=== PATIENT | male | born 1975 | race American Indian/Alaskan Native ===

== ENCOUNTER 2017-10-11 16:01 | Emergency (ER) | payer OTHER ==
[2017-10-11 16:19] VITALS: BP 165/114
[2017-10-11 17:17] LABS: Basophils % (Auto) 0.1 % (0.0-1.8); Eosinophils # (Auto) 0.2 K/mm3 (0.0-0.4); Eosinophils % (Auto) 2.7 % (0.0-4.3); Hemoglobin 16.2 gm/dl (11.8-15.2); Lymphocytes # (Auto) 1.5 K/mm3 (1.2-5.4); Lymphocytes % (Auto) 23.1 % (13.4-35.0); Mean Corpuscular HGB Conc 33 % (32-34); Mean Corpuscular Hemoglobin 31 pg (28-32); Mean Corpuscular Volume 92 fl (84-94); Monocytes # (Auto) 0.8 K/mm3 (0.0-0.8); Monocytes % (Auto) 11.8 % (0.0-7.3); Platelet Count 182 K/mm3 (140-440); Red Blood Count 5.32 M/mm3 (3.65-5.03); Red Cell Distribution Width 14.8 % (13.2-15.2)
--- NOTE | 2017-10-11 17:22 | XRay Report ---
FINAL REPORT EXAM: XR CHEST ROUTINE 2V HISTORY: Shortness of breath TECHNIQUE: Two views of the chest were performed Comparison: None FINDINGS: Heart size is normal. There are patchy increased right perihilar and slightly infrahilar markings suggestive of mild right middle lobe infiltrate. There are no effusions. There is mild bronchial thickening bilaterally. IMPRESSION: Mild right middle lobe infiltrate and mild bilateral bronchitis.
[2017-10-11 17:30] LABS: BUN/Creatinine Ratio 12; Blood Urea Nitrogen 14 mg/dL (9-20); Calcium 9.1 mg/dL (8.4-10.2); Hemolysis Index 18
[2017-10-11] MEDS ORDERED: NORCO 7.5/325 PO ONE (18:08)
[2017-10-11] MEDS ORDERED: MOTRIN PO ONE (18:08)
--- NOTE | 2017-10-11 18:15 | Emergency Department Report ---
Blank Doc - Documentation Documentation: Patient is a 42-year-old [place]ian male who is presenting with left-sided chest pain for the last 2 days. Patient's had a cough congestion for approximately 2 weeks with pain just developed 2 days ago. Patient states it is pleuritic and hurts to take a deep breath and also hurts cough. Patient states pain is approximately 8 out of 10 in severity. Patient denies any fever or significant shortness of breath at this time. Patient's laboratory studies are relatively within normal limits and h x-ray shows a left-sided infiltrate. Because of how painful the patient is and how much difficulty has when he takes a deep breath CTA of the chest to rule out PE was performed as well as to gain more insight on how large the pneumonia is listed as a mass associated.
--- NOTE | 2017-10-11 19:49 | Cat Scan Report ---
FINAL REPORT EXAM: CT ANGIO CHEST HISTORY: LEFT SIDED INFILTRATE PAIN WITH INSPIR RO PE TECHNIQUE: CT chest CT angiogram with intravenous contrast. Multiplanar and maximum intensity reconstructions obtained PRIORS: None. FINDINGS: There is no evidence of filling defect within the central pulmonary vasculature to suggest the presence of acute pulmonary embolus. There is enlarged pretracheal lymph node measuring 2.0 x 1.24 centimeters. There is bilateral hilar lymphatic prominence. Heart and great vessels are unremarkable. The aorta is normal in caliber. Within the right upper lobe and right lower lobe there are nodular pulmonary opacities largely falling along bronchovascular bundles along with mild bronchial wall thickening. No pleural fluid collection seen. Visualized portion of the upper abdomen demonstrates no acute change. IMPRESSION: Bilateral hilar adenopathy with enlarged pretracheal lymph node Right-sided pulmonary nodular opacities with a "tree-in-bud" appearance. Differential considerations are broad and include infectious etiologies including fungal or mycobacterial infection, sarcoidosis or bronchiolitis
[2017-10-11] MEDS ORDERED: LEVAQUIN PO ONE (20:02)
--- NOTE | 2017-10-11 20:09 | Emergency Department Report ---
ED Chest Pain HPI - General Chief Complaint: Chest Pain Stated Complaint: CHEST PAIN Time Seen by Provider: 10/11/17 17:54 Source: patient Mode of arrival: Ambulatory Limitations: No Limitations - History of Present Illness Initial Comments: 5-year-old male past medical history presents with complaint of 2 weeks of cough 2 days of pleuritic chest discomfort. Patient is awake alert and oriented 3. Patient initially evaluated by Dr. Tran. Fully lucid no audible wheezing or stridor on interview. Patient states he still has persistent cough slightly productive in nature. Denies any palpitations with substernal chest pain. Subjective fever. Denies any nausea or vomiting. MD Complaint: chest pain Onset/Timin -: days(s) Onset: during rest Pain Location: left chest Severity: moderate Severity scale (0 -10): 6 Quality: other (pleuritic) Consistency: intermittent Improves With: nothing Worsens With: other (coughing) Other Symptoms: cough, fever Aspirin use within the Past 7 Days: (0) No - Related Data On Oral Contraceptives: No Previous Rx's Medication Instructions Recorded Last Taken Type ALBUTEROL Inhaler [ProAir HFA 2 puff IH QID PRN #1 inhalation 10/11/17 Unknown Rx Inhaler] Ibuprofen [Motrin] 800 mg PO Q8HR PRN #20 tablet 10/11/17 Unknown Rx Levofloxacin [Levaquin] 750 mg PO QDAY #5 tablet 10/11/17 Unknown Rx Phenylephrine/Dm/Acetaminop/GG 10 ml PO Q6H PRN #1 liquid 10/11/17 Unknown Rx [Mucinex Hdfx-Xdg-Vxivsftkjv Lq] Allergies Allergy/AdvReac Type Severity Reaction Status Date / Time No Known Allergies Allergy Unverified 10/11/17 16:14 Heart Score - HEART Score History: Slightly suspicious EKG: Normal Age: < 45 Risk factors: 1-2 risk factors Troponin: < normal limit HEART Score: 1 ED Review of Systems ROS: Stated complaint: CHEST PAIN Other details as noted in HPI Constitutional: denies: chills, fever Eyes: denies: eye pain, eye discharge, vision change ENT: denies: ear pain, throat pain Respiratory: cough, shortness of breath. denies: wheezing Cardiovascular: denies: chest pain, palpitations Endocrine: no symptoms reported Gastrointestinal: denies: abdominal pain, nausea, diarrhea Genitourinary: denies: urgency, dysuria Musculoskeletal: denies: back pain, joint swelling, arthralgia Skin: denies: rash, lesions Neurological: denies: headache, weakness, paresthesias Psychiatric: denies: anxiety, depression Hematological/Lymphatic: denies: easy bleeding, easy bruising ED Past Medical Hx - Past Medical History Previous Medical History?: Yes Additional medical history: Bronchitis - Surgical History Past Surgical History?: No - Social History Smoking Status: Never Smoker Substance Use Type: Alcohol, Non Opiate Pain, Other - Medications Home Medications: Home Medications Medication Instructions Recorded Confirmed Last Taken Type ALBUTEROL Inhaler [ProAir HFA 2 puff IH QID PRN #1 inhalation 10/11/17 Unknown Rx Inhaler] Ibuprofen [Motrin] 800 mg PO Q8HR PRN #20 tablet 10/11/17 Unknown Rx Levofloxacin [Levaquin] 750 mg PO QDAY #5 tablet 10/11/17 Unknown Rx Phenylephrine/Dm/Acetaminop/GG 10 ml PO Q6H PRN #1 liquid 10/11/17 Unknown Rx [Mucinex Dvda-Fbi-Nqlrwgoaqc Lq] ED Physical Exam - General Limitations: No Limitations General appearance: alert, in no apparent distress - Head Head exam: Present: atraumatic, normocephalic - Eye Eye exam: Present: normal appearance, PERRL, EOMI - ENT ENT exam: Present: mucous membranes moist - Neck Neck exam: Present: normal inspection - Respiratory Respiratory exam: Present: rhonchi (slight rhonchi right lung field). Absent: respiratory distress - Cardiovascular Cardiovascular Exam: Present: regular rate, normal rhythm. Absent: systolic murmur, diastolic murmur, rubs, gallop - GI/Abdominal GI/Abdominal exam: Present: soft, normal bowel sounds - Rectal Rectal exam: Present: deferred - Extremities Exam Extremities exam: Present: normal inspection - Back Exam Back exam: Present: normal inspection - Neurological Exam Neurological exam: Present: alert, oriented X3 - Psychiatric Psychiatric exam: Present: normal affect, normal mood - Skin Skin exam: Present: warm, dry, intact, normal color. Absent: rash ED Course Vital Signs 10/11/17 10/11/17 10/11/17 16:14 18:25 18:29 Temperature 98.5 F Pulse Rate 77 Respiratory 18 18 18 Rate Blood Pressure 165/114 O2 Sat by Pulse 98 Oximetry JULIEN score - Julien Score Age > 65: (0) No Aspirin use within the Past 7 Days: (0) No 3 or more CAD Risk Factors: (0) No 2 or more Angina events in past 24 hrs: (0) No Known CAD with more than 50% Stenosis: (0) No Elevated Cardiac Markers: (0) No ST Deviation Greater than 0.5mm: (0) No JULIEN Score: 0 ED Medical Decision Making - Lab Data Result diagrams: 10/11/17 16:55 10/11/17 16:55 - Medical Decision Making A/P: Right-sided pneumonia 1-case discussed with Dr. Tran and CT of chest reviewed. N Chiodo study obtained to rule out PE. As per CT there is some upper and lower right sided anomaly consistent with pulmonary opacities. Differentials include as per CT read fungal versus mycobacterial infection sarcoidosis or bronchiolitis 2-Dr. Tran and I both spoke to the patient and informed him of his CT finding. We offered to treat him for pneumonia and admit him to the hospital for further management. Patient declined at this time states that he has personal issues he must take care of before being admitted or further evaluated at this time. Blood cultures sent before discharge. Patient empirically covered with a dose of Levaquin + fluconazole as per Dr. Tran. Patient stated that he would come back as soon as possible and more than likely would return to the hospital tomorrow for further evaluation and management. We warned the patient that he is at risk for sepsis and . Patient stated he understood these risks and would come back as soon as possible. This conversation was witnessed by roll operator at bedside. 3-Motrin when necessary, albuterol inhaler, Mucinex prn Critical care attestation.: If time is entered above; I have spent that time in minutes in the direct care of this critically ill patient, excluding procedure time. ED Disposition Clinical Impression: Left against medical advice Pneumonia Qualifiers: Pneumonia type: due to unspecified organism Laterality: right Lung location: upper lobe of lung Qualified Code(s): J18.1 - Lobar pneumonia, unspecified organism Disposition: LEFT AGAINST MED ADVICE Is pt being admited?: No Does the pt Need Aspirin: No Condition: Stable Instructions: Bacterial Pneumonia (ED), Community-acquired Pneumonia (ED) Additional Instructions: Patient advised to return to the ED for reevaluation and further management as soon as possible Prescriptions: ALBUTEROL Inhaler [ProAir HFA Inhaler] 2 puff IH QID PRN #1 inhalation PRN Reason: Cough Ibuprofen [Motrin] 800 mg PO Q8HR PRN #20 tablet PRN Reason: Fever Levofloxacin [Levaquin] 750 mg PO QDAY #5 tablet Phenylephrine/Dm/Acetaminop/GG [Mucinex Qqky-Atm-Wbspudfijd Lq] 10 ml PO Q6H PRN #1 liquid PRN Reason: Cough Referrals: [facility] [Provider Group] - 3-5 Days Forms: AMA Form Time of Disposition: 20:10
[2017-10-11] MEDS ORDERED: DIFLUCAN PO ONE (21:04)
== END 2017-10-11 20:30 | disposition left against medical advice (07) ==
LOC: ED 16:01
DX: J18.1 Lobar pneumonia, unspecified organism (principal)
CPT/HCPCS: 36415; 71046; 71275; 80048; 84484; 85025; 87040; 93005; 93010; 99284; Q9967

== ENCOUNTER 2017-10-12 19:34 | Emergency (ER) | payer SELFPAY ==
[2017-10-12 20:39] LABS: Basophils % (Auto) 0.3 % (0.0-1.8); Eosinophils # (Auto) 0.1 K/mm3 (0.0-0.4); Eosinophils % (Auto) 1.6 % (0.0-4.3); Hematocrit 50.6 % (35.5-45.6); Lymphocytes # (Auto) 1.5 K/mm3 (1.2-5.4); Lymphocytes % (Auto) 21.2 % (13.4-35.0); Mean Corpuscular HGB Conc 34 % (32-34); Mean Corpuscular Hemoglobin 31 pg (28-32); Mean Corpuscular Volume 91 fl (84-94); Monocytes # (Auto) 0.7 K/mm3 (0.0-0.8); Monocytes % (Auto) 9.4 % (0.0-7.3); Platelet Count 172 K/mm3 (140-440); Red Blood Count 5.57 M/mm3 (3.65-5.03); Red Cell Distribution Width 14.5 % (13.2-15.2)
[2017-10-12 20:48] LABS: BUN/Creatinine Ratio 13; Blood Urea Nitrogen 13 mg/dL (9-20); Calcium 9.1 mg/dL (8.4-10.2); Hemolysis Index 14
[2017-10-13] MEDS ORDERED: TORADOL IM ONE (03:35)
--- NOTE | 2017-10-13 03:43 | Emergency Department Report ---
ED General Adult HPI - General Chief complaint: Chest Pain Stated complaint: CP Time Seen by Provider: 10/13/17 03:23 Source: patient Mode of arrival: Ambulatory Limitations: No Limitations - History of Present Illness Initial comments: Patient is 42 years old male with no significant past medical history. Patient was seen here yesterday for a 2 week history of left-sided chest pain cough. Patient had a CTA done and it shows some possible pulmonary opacities questioning pneumonia or other kind of infection. Patient did not stay yesterday and he came back again. Patient stated that he did not have any fever recently no weight loss, no loss of appetite. No recent travel. No family history of sarcoidosis. Patient denied night sweats or fever. Severity scale (0 -10): 6 - Related Data Previous Rx's Medication Instructions Recorded Last Taken Type ALBUTEROL Inhaler [ProAir HFA 2 puff IH QID PRN #1 inhalation 10/11/17 Unknown Rx Inhaler] Ibuprofen [Motrin] 800 mg PO Q8HR PRN #20 tablet 10/11/17 Unknown Rx Levofloxacin [Levaquin] 750 mg PO QDAY #5 tablet 10/11/17 Unknown Rx Phenylephrine/Dm/Acetaminop/GG 10 ml PO Q6H PRN #1 liquid 10/11/17 Unknown Rx [Mucinex Iupx-Buw-Kueujvlcdk Lq] Allergies Allergy/AdvReac Type Severity Reaction Status Date / Time No Known Allergies Allergy Unverified 10/11/17 16:14 ED Review of Systems ROS: Stated complaint: CP Other details as noted in HPI Comment: All other systems reviewed and negative Constitutional: denies: chills, fever Respiratory: cough. denies: orthopnea, shortness of breath, SOB with exertion Cardiovascular: denies: chest pain, palpitations, dyspnea on exertion, edema Gastrointestinal: denies: abdominal pain, nausea, vomiting, diarrhea, constipation, hematemesis Genitourinary: denies: urgency, dysuria Neurological: denies: headache, weakness, numbness, paresthesias ED Past Medical Hx - Past Medical History Additional medical history: Bronchitis - Social History Smoking Status: Never Smoker Substance Use Type: None - Medications Home Medications: Home Medications Medication Instructions Recorded Confirmed Last Taken Type ALBUTEROL Inhaler [ProAir HFA 2 puff IH QID PRN #1 inhalation 10/11/17 Unknown Rx Inhaler] Ibuprofen [Motrin] 800 mg PO Q8HR PRN #20 tablet 10/11/17 Unknown Rx Levofloxacin [Levaquin] 750 mg PO QDAY #5 tablet 10/11/17 Unknown Rx Phenylephrine/Dm/Acetaminop/GG 10 ml PO Q6H PRN #1 liquid 10/11/17 Unknown Rx [Mucinex Pidn-Sol-Ljqpktwhqq Lq] ED Physical Exam - General Limitations: No Limitations General appearance: alert, in no apparent distress - Head Head exam: Present: atraumatic, normocephalic - Eye Eye exam: Present: normal appearance, PERRL - ENT ENT exam: Present: normal exam, normal orophraynx, mucous membranes moist - Neck Neck exam: Present: normal inspection, full ROM. Absent: tenderness, meningismus - Respiratory Respiratory exam: Present: normal lung sounds bilaterally. Absent: respiratory distress, wheezes, rales, rhonchi, stridor, chest wall tenderness, accessory muscle use, decreased breath sounds, prolonged expiratory - Cardiovascular Cardiovascular Exam: Present: regular rate, normal rhythm, normal heart sounds - GI/Abdominal GI/Abdominal exam: Present: soft. Absent: distended, tenderness, guarding - Extremities Exam Extremities exam: Present: normal inspection, full ROM, normal capillary refill - Back Exam Back exam: Present: normal inspection, full ROM. Absent: tenderness, CVA tenderness (R), CVA tenderness (L), muscle spasm, paraspinal tenderness - Neurological Exam Neurological exam: Present: alert, oriented X3, CN II-XII intact, normal gait - Skin Skin exam: Present: warm, intact, normal color. Absent: cyanosis, diaphoretic ED Course Vital Signs 10/12/17 19:35 Temperature 98.1 F Pulse Rate 77 Respiratory 16 Rate Blood Pressure 178/108 O2 Sat by Pulse 98 Oximetry - Reevaluation(s) Reevaluation #1: 10/13/17 03:46 Patient looks very well in no acute distress. No clinical evidence of TB or malignancy. Patient vital signs stable with an oxygen saturation of 100% on room air. I advised patient to follow up with a pulmonology for further workup. I don't feel this patient needed to be admitted at this time since he is completely asymptomatic except for the cough. Labs reviewed from today and yesterday which showed no acute abnormality. I advised patient to continue his current antibiotic. 10/13/17 03:48 ED Medical Decision Making - Lab Data Result diagrams: 10/12/17 20:18 10/12/17 20:18 Critical care attestation.: If time is entered above; I have spent that time in minutes in the direct care of this critically ill patient, excluding procedure time. ED Disposition Clinical Impression: Pneumonia Disposition: DC-01 TO HOME OR SELFCARE Is pt being admited?: No Condition: Stable Instructions: Bacterial Pneumonia (ED) Referrals: CARMEN BOTELLO MD [Primary Care Provider] - 3-5 Days
[2017-10-13] MEDS ORDERED: LEVAQUIN ONE (03:47)
[2017-10-13] MEDS ORDERED: LEVAQUIN PO ONE (03:55)
[2017-10-13 03:57] VITALS: BP 168/125
== END 2017-10-13 04:03 | disposition home or self-care (01) ==
LOC: ED 19:34
DX: J18.9 Pneumonia, unspecified organism (principal)
CPT/HCPCS: 36415; 80048; 85025; 93005; 93010; 96372; 99283; J1885

== ENCOUNTER 2018-11-02 05:43 | Emergency (ER) | payer OTHER ==
[2018-11-02] MEDS ORDERED: NACL 0.9% 1000 ML 1,000 ML IV ONE (05:49)
[2018-11-02 06:47] LABS: Basophils % (Auto) 0.3 % (0.0-1.8); Eosinophils # (Auto) 0.1 K/mm3 (0.0-0.4); Eosinophils % (Auto) 1.7 % (0.0-4.3); Hematocrit 50.5 % (35.5-45.6); Hemoglobin 16.9 gm/dl (11.8-15.2); Lymphocytes # (Auto) 1.8 K/mm3 (1.2-5.4); Lymphocytes % (Auto) 30.9 % (13.4-35.0); Mean Corpuscular HGB Conc 33 % (32-34); Mean Corpuscular Volume 93 fl (84-94); Monocytes # (Auto) 0.5 K/mm3 (0.0-0.8); Monocytes % (Auto) 8.9 % (0.0-7.3); Platelet Count 184 K/mm3 (140-440); Red Blood Count 5.45 M/mm3 (3.65-5.03); Red Cell Distribution Width 14.7 % (13.2-15.2)
[2018-11-02 07:07] LABS: Alanine Aminotransferase 12 units/L (7-56); Albumin 4.2 g/dL (3.9-5); BUN/Creatinine Ratio 11; Blood Urea Nitrogen 12 mg/dL (9-20); Calcium 9.2 mg/dL (8.4-10.2); Hemolysis Index 15
[2018-11-02 07:32] LABS: Bilirubin,Urine NEG (Negative); Blood,Urine NEG (Negative); Color,Urine Yellow (Yellow); Mucus,Urine 3+ /HPF; Protein,Urine <15 mg/dL mg/dL (Negative); Urobilinogen,Urine < 2.0 mg/dL (<2.0)
[2018-11-02] MEDS ORDERED: ZOFRAN IV ONE (09:30)
[2018-11-02] MEDS ORDERED: TORADOL IV ONE (09:30)
[2018-11-02] MEDS ORDERED: MORPHINE IV ONE (09:30)
[2018-11-02] MEDS ORDERED: PEPCID IV ONE (09:31)
--- NOTE | 2018-11-02 11:01 | Cat Scan Report ---
PROCEDURE: CT ABDOMEN PELVIS W CON TECHNIQUE: CT of the abdomen and pelvis was performed. IV contrast was administered. No oral contrast was administered. Axial images and coronal and sagittal reformatted images were obtained. HISTORY: abdominal pain COMPARISON: None FINDINGS: The visualized liver, spleen, pancreas, adrenal glands and kidneys demonstrate no significant abnorma lity. There is no abdominal aortic aneurysm. There is no evidence for intestinal obstruction. The appendix is normal. There is no abnormal fluid collection seen. There is no free intraperitoneal air. Bladder is unremarkable. There is no abnormal pelvic fluid collection or mass seen. IMPRESSION: There is no acute abnormality identified. This document is electronically signed by Mariah Mathias MD., November 02 2018 10:59:29 AM ET
--- NOTE | 2018-11-02 11:46 | Emergency Department Report ---
ED Abdominal Pain HPI - General Chief Complaint: Abdominal Pain Stated Complaint: STOMACH PAIN Time Seen by Provider: 11/02/18 09:22 Source: patient Mode of arrival: Ambulatory Limitations: No Limitations - History of Present Illness Initial Comments: Mr. Morales is a 43-year-old male with history of hypertension presents with 3-4 days of generalized abdominal pain nausea vomiting diarrhea. Sick contact at home with similar symptoms. Denies fever. Mild to moderate cramping pain. MD Complaint: abdominal pain -: Gradual Location: periumbilical Severity: mild Severity scale (0 -10): 5 Quality: cramping Consistency: constant Improves With: nothing Worsens With: nothing - Related Data Previous Rx's Medication Instructions Recorded Last Taken Type ALBUTEROL Inhaler (OR & NICU) 2 puff IH QID PRN #1 inhalation 10/11/17 Unknown Rx [ProAir HFA Inhaler] Ibuprofen [Motrin] 800 mg PO Q8HR PRN #20 tablet 10/11/17 Unknown Rx Phenylephrine/Dm/Acetaminop/GG 10 ml PO Q6H PRN #1 liquid 10/11/17 Unknown Rx [Mucinex Fuhf-Ycy-Iqporqynfc Lq] levoFLOXacin [Levaquin] 750 mg PO QDAY #5 tablet 10/11/17 Unknown Rx Famotidine [Acid Controller] 20 mg PO BID 30 Days #60 tablet 11/02/18 Unknown Rx Promethazine [Phenergan TAB] 25 mg PO Q6HR PRN #10 tab 11/02/18 Unknown Rx amLODIPine [Norvasc] 5 mg PO DAILY 30 Days #30 tab 11/02/18 Unknown Rx hydroCHLOROthiazide [HCTZ] 25 mg PO QDAY #30 tablet 11/02/18 Unknown Rx Allergies Allergy/AdvReac Type Severity Reaction Status Date / Time No Known Allergies Allergy Unverified 10/11/17 16:14 ED Review of Systems ROS: Stated complaint: STOMACH PAIN Other details as noted in HPI Comment: All other systems reviewed and negative Constitutional: malaise. denies: fever Gastrointestinal: abdominal pain, nausea, vomiting, diarrhea ED Past Medical Hx - Past Medical History Previous Medical History?: Yes Hx Hypertension: Yes Additional medical history: Bronchitis - Surgical History Past Surgical History?: No - Social History Smoking Status: Never Smoker Substance Use Type: Alcohol - Medications Home Medications: Home Medications Medication Instructions Recorded Confirmed Last Taken Type ALBUTEROL Inhaler (OR & NICU) 2 puff IH QID PRN #1 inhalation 10/11/17 Unknown Rx [ProAir HFA Inhaler] Ibuprofen [Motrin] 800 mg PO Q8HR PRN #20 tablet 10/11/17 Unknown Rx Phenylephrine/Dm/Acetaminop/GG 10 ml PO Q6H PRN #1 liquid 10/11/17 Unknown Rx [Mucinex Mhxy-Qgx-Ncvvoxpsns Lq] levoFLOXacin [Levaquin] 750 mg PO QDAY #5 tablet 10/11/17 Unknown Rx Famotidine [Acid Controller] 20 mg PO BID 30 Days #60 tablet 11/02/18 Unknown Rx Promethazine [Phenergan TAB] 25 mg PO Q6HR PRN #10 tab 11/02/18 Unknown Rx amLODIPine [Norvasc] 5 mg PO DAILY 30 Days #30 tab 11/02/18 Unknown Rx hydroCHLOROthiazide [HCTZ] 25 mg PO QDAY #30 tablet 11/02/18 Unknown Rx ED Physical Exam - General Limitations: No Limitations General appearance: alert, in no apparent distress - Head Head exam: Present: atraumatic, normocephalic - Eye Eye exam: Present: normal appearance - ENT ENT exam: Present: mucous membranes moist - Neck Neck exam: Present: normal inspection, full ROM - Respiratory Respiratory exam: Present: normal lung sounds bilaterally. Absent: respiratory distress, wheezes, rales, rhonchi - Cardiovascular Cardiovascular Exam: Present: regular rate, normal rhythm, normal heart sounds. Absent: systolic murmur, diastolic murmur, rubs, gallop - GI/Abdominal GI/Abdominal exam: Present: soft, normal bowel sounds. Absent: distended, tenderness, guarding, rebound - Rectal Rectal exam: Present: deferred - Extremities Exam Extremities exam: Present: normal inspection - Back Exam Back exam: Present: normal inspection - Neurological Exam Neurological exam: Present: alert, oriented X3 - Psychiatric Psychiatric exam: Present: normal affect, normal mood - Skin Skin exam: Present: warm, dry, intact, normal color. Absent: rash ED Course Vital Signs 11/02/18 11/02/18 11/02/18 05:45 09:24 09:30 Temperature 98.3 F Pulse Rate 62 Respiratory 18 Rate Blood Pressure 209/135 196/126 O2 Sat by Pulse 98 100 100 Oximetry 11/02/18 11/02/18 11/02/18 09:41 09:45 10:00 Temperature Pulse Rate Respiratory 18 18 Rate Blood Pressure 196/126 200/125 O2 Sat by Pulse 98 99 Oximetry 11/02/18 11/02/18 11/02/18 10:11 10:15 10:27 Temperature Pulse Rate Respiratory 18 18 Rate Blood Pressure 200/125 O2 Sat by Pulse 99 Oximetry 11/02/18 11/02/18 11/02/18 10:30 10:45 10:56 Temperature Pulse Rate Respiratory 18 Rate Blood Pressure 200/125 O2 Sat by Pulse 99 99 96 Oximetry ED Medical Decision Making - Lab Data Result diagrams: 11/02/18 06:00 11/02/18 06:00 Laboratory Results - last 24 hr 11/02/18 11/02/18 11/02/18 06:00 06:00 07:09 WBC 5.7 RBC 5.45 H Hgb 16.9 H Hct 50.5 H MCV 93 MCH 31 MCHC 33 RDW 14.7 Plt Count 184 Lymph % (Auto) 30.9 [place] % (Auto) 8.9 H Eos % (Auto) 1.7 Baso % (Auto) 0.3 Lymph # 1.8 [place] # 0.5 Eos # 0.1 Baso # 0.0 Seg Neutrophils % 58.2 Seg Neutrophils # 3.3 Sodium 140 Potassium 3.7 Chloride 101.9 Carbon Dioxide 28 Anion Gap 14 BUN 12 Creatinine 1.1 Estimated GFR > 60 BUN/Creatinine Ratio 11 Glucose 86 Calcium 9.2 Total Bilirubin 1.00 AST 24 ALT 12 Alkaline Phosphatase 78 Total Protein 7.8 Albumin 4.2 Albumin/Globulin Ratio 1.2 Urine Color Yellow Urine Turbidity Clear Urine pH 5.0 Ur Specific [place] 1.035 H Urine Protein <15 mg/dl Urine Glucose (UA) Neg Urine Ketones Neg Urine Blood Neg Urine Nitrite Neg Urine Bilirubin Neg Urine Urobilinogen < 2.0 Ur Leukocyte Esterase Neg Urine WBC (Auto) 1.0 Urine RBC (Auto) 1.0 U Epithel Cells (Auto) < 1.0 Urine Mucus 3+ - Radiology Data Radiology results: report reviewed CT abdomen and pelvis no acute process according to radiology report - Medical Decision Making Mr. Morales presents for abdominal pain with nausea vomiting diarrhea. CBC notable for hemoconcentration and normal white count Recommended supportive care. No Evidence of acute inflammatory process of CT. Recommended clear liquid diet. Prescribed promethazine and famotidine. History of hypertension. Noncompliant with medication. Patient explains that he just desires not to take medication. I prescribed amlodipine chlorothiazide. Critical care attestation.: If time is entered above; I have spent that time in minutes in the direct care of this critically ill patient, excluding procedure time. ED Disposition Clinical Impression: Acute gastroenteritis, Abdominal pain, Hypertensive urgency Disposition: - TO HOME OR SELFCARE Is pt being admited?: No Does the pt Need Aspirin: No Condition: Stable Instructions: Hypertension (ED), Acute Abdominal Pain (ED) Prescriptions: Famotidine [Acid Controller] 20 mg PO BID 30 Days #60 tablet hydroCHLOROthiazide [HCTZ] 25 mg PO QDAY #30 tablet amLODIPine [Norvasc] 5 mg PO DAILY 30 Days #30 tab Promethazine [Phenergan TAB] 25 mg PO Q6HR PRN #10 tab PRN Reason: Nausea Referrals: LEONADRO BEGUM MD [Primary Care Provider] - 3-5 Days Forms: Work/School Release Form(ED)
[2018-11-02] MEDS ORDERED: CATAPRES PO ONE (12:04)
[2018-11-02 12:34] VITALS: BP 203/110
== END 2018-11-02 12:35 | disposition home or self-care (01) ==
LOC: ED 05:43
DX: K52.9 Noninfective gastroenteritis and colitis, unspecified (principal); I16.0 Hypertensive urgency; I10 Essential (primary) hypertension
CPT/HCPCS: 36415; 74177; 80053; 81001; 85025; 96361; 96374; 96375; 99284; J1885; J2270; J2405; J7030; Q9967

== ENCOUNTER 2019-04-07 10:44 | Emergency (ER) | payer OTHER ==
[2019-04-07] MEDS ORDERED: CATAPRES ONE (11:01)
[2019-04-07] MEDS ORDERED: CATAPRES PO ONE ×2 (11:03→13:52)
--- NOTE | 2019-04-07 11:23 | Emergency Department Report ---
ED Male HPI - General Chief complaint: Urogenital-Male Stated complaint: BLOOD IN SEMEN Time Seen by Provider: 04/07/19 11:14 Source: patient Mode of arrival: Ambulatory Limitations: No Limitations - History of Present Illness Initial comments: Patient is 43 years old male with history of hypertension, noncompliant with his medication. Patient presented to the ER complaining of blood in the semen and testicular pain for the last 3 days. Patient denied any fever or chills. Patient also denied any history of trauma. No dysuria, frequency or hematuria. MD Complaint: testicle pain, penile discharge -: days(s) (3) Radiation: none Severity: mild Severity scale (0 -10): 2 - Related Data Sexually active: Yes Previous Rx's Medication Instructions Recorded Last Taken Type ALBUTEROL Inhaler (OR & NICU) 2 puff IH QID PRN #1 inhalation 10/11/17 Unknown Rx [ProAir HFA Inhaler] Ibuprofen [Motrin] 800 mg PO Q8HR PRN #20 tablet 10/11/17 Unknown Rx Phenylephrine/Dm/Acetaminop/GG 10 ml PO Q6H PRN #1 liquid 10/11/17 Unknown Rx [Mucinex Lvad-Drg-Vptmczgshh Lq] levoFLOXacin [Levaquin] 750 mg PO QDAY #5 tablet 10/11/17 Unknown Rx Famotidine [Acid Controller] 20 mg PO BID 30 Days #60 tablet 11/02/18 Unknown Rx Promethazine [Phenergan] 25 mg PO Q6HR PRN #10 tab 11/02/18 Unknown Rx amLODIPine [Norvasc] 5 mg PO DAILY 30 Days #30 tab 11/02/18 Unknown Rx hydroCHLOROthiazide [HCTZ] 25 mg PO QDAY #30 tablet 11/02/18 Unknown Rx amLODIPine [Norvasc] 5 mg PO DAILY #30 tab 04/07/19 Unknown Rx hydroCHLOROthiazide [HCTZ] 25 mg PO QDAY #30 tablet 04/07/19 Unknown Rx Allergies Allergy/AdvReac Type Severity Reaction Status Date / Time No Known Allergies Allergy Verified 04/07/19 10:50 ED Review of Systems ROS: Stated complaint: BLOOD IN SEMEN Other details as noted in HPI Comment: All other systems reviewed and negative Constitutional: denies: chills, fever Respiratory: denies: cough, shortness of breath, SOB with exertion, SOB at rest, wheezing Cardiovascular: denies: chest pain, palpitations, dyspnea on exertion Gastrointestinal: denies: abdominal pain, nausea, diarrhea, constipation, hematemesis, melena, hematochezia Genitourinary: discharge, testicular pain. denies: urgency, dysuria, frequency, hematuria, testicular mass Musculoskeletal: denies: back pain Neurological: denies: headache, weakness, numbness, paresthesias, confusion, abn ormal gait ED Past Medical Hx - Past Medical History Hx Hypertension: Yes Additional medical history: Bronchitis - Surgical History Past Surgical History?: No - Social History Smoking Status: Current Every Day Smoker Substance Use Type: Alcohol, Marijuana - Medications Home Medications: Home Medications Medication Instructions Recorded Confirmed Last Taken Type ALBUTEROL Inhaler (OR & NICU) 2 puff IH QID PRN #1 inhalation 10/11/17 Unknown Rx [ProAir HFA Inhaler] Ibuprofen [Motrin] 800 mg PO Q8HR PRN #20 tablet 10/11/17 Unknown Rx Phenylephrine/Dm/Acetaminop/GG 10 ml PO Q6H PRN #1 liquid 10/11/17 Unknown Rx [Mucinex Lhad-Rdu-Cmbvrbfnfq Lq] levoFLOXacin [Levaquin] 750 mg PO QDAY #5 tablet 10/11/17 Unknown Rx Famotidine [Acid Controller] 20 mg PO BID 30 Days #60 tablet 11/02/18 Unknown Rx Promethazine [Phenergan] 25 mg PO Q6HR PRN #10 tab 11/02/18 Unknown Rx amLODIPine [Norvasc] 5 mg PO DAILY 30 Days #30 tab 11/02/18 Unknown Rx hydroCHLOROthiazide [HCTZ] 25 mg PO QDAY #30 tablet 11/02/18 Unknown Rx amLODIPine [Norvasc] 5 mg PO DAILY #30 tab 04/07/19 Unknown Rx hydroCHLOROthiazide [HCTZ] 25 mg PO QDAY #30 tablet 04/07/19 Unknown Rx ED Physical Exam - General Limitations: No Limitations General appearance: alert, in no apparent distress - Head Head exam: Present: atraumatic, normocephalic, normal inspection - Eye Eye exam: Present: normal appearance, PERRL - ENT ENT exam: Present: normal exam, normal orophraynx, mucous membranes moist - Neck Neck exam: Present: normal inspection, full ROM. Absent: tenderness, meningismus, lymphadenopathy, thyromegaly - Respiratory Respiratory exam: Present: normal lung sounds bilaterally - Cardiovascular Cardiovascular Exam: Present: regular rate, normal rhythm, normal heart sounds - GI/Abdominal GI/Abdominal exam: Present: soft, normal bowel sounds. Absent: distended, tenderness, guarding, rebound, rigid, organomegaly, mass, bruit, pulsatile mass, hernia - Extremities Exam Extremities exam: Present: normal inspection, full ROM, normal capillary refill. Absent: tenderness, pedal edema, joint swelling, calf tenderness - Back Exam Back exam: Present: normal inspection, full ROM. Absent: CVA tenderness (R), CVA tenderness (L), muscle spasm, paraspinal tenderness, vertebral tenderness - Neurological Exam Neurological exam: Present: alert, oriented X3, CN II-XII intact, normal gait, reflexes normal - Skin Skin exam: Present: warm, intact, normal color ED Course Vital Signs 04/07/19 04/07/19 04/07/19 10:51 11:04 11:33 Temperature 98.6 F 98.5 F Pulse Rate 64 64 61 Respiratory 18 17 Rate Blood Pressure 199/135 199/135 Blood Pressure 189/119 [Right] O2 Sat by Pulse 99 99 Oximetry 04/07/19 04/07/19 04/07/19 13:20 14:07 14:48 Temperature Pulse Rate 61 63 63 Respiratory 13 21 15 Rate Blood Pressure Blood Pressure 163/110 169/118 159/115 [Right] O2 Sat by Pulse 99 98 98 Oximetry ED Medical Decision Making - Lab Data Result diagrams: 04/07/19 11:20 04/07/19 11:20 - Medical Decision Making Patient is 43 years old male with history of hypertension, noncompliant with his medication. Patient presented to the ER complaining of blood in the semen and testicular pain for the last 3 days. Patient denied any fever or chills. Patient also denied any history of trauma. No dysuria, frequency or hematuria. Patient found to have a blood pressure of 199/135. Patient denied any headache, weakness numbness or tingling sensation. Patient also denied any chest pain or shortness of breath. Patient received clonidine 0.3 mg. Labs reviewed and is unremarkable. Testicular ultrasound is negative for acute finding. Patient given Rocephin 250 mg IM and Zithromax 1 g by mouth. GC and chlamydia test ordered for a send out. Patient given a prescription for Norvasc 5 mg and hydrochlorothiazide and advised to follow-up with primary care physician in the next 2-3 days and to return to the ER if symptoms are not improved. Critical care attestation.: If time is entered above; I have spent that time in minutes in the direct care of this critically ill patient, excluding procedure time. ED Disposition Clinical Impression: Malignant hypertension, Testicular pain, STD (male) Disposition: TO HOME OR SELFCARE Is pt being admited?: No Condition: Stable Instructions: Sexually Transmitted Diseases (ED), Safe Sex (ED), Hypertension (ED) Prescriptions: hydroCHLOROthiazide [HCTZ] 25 mg PO QDAY #30 tablet amLODIPine [Norvasc] 5 mg PO DAILY #30 tab Referrals: [facility] [Provider Group] - 3-5 Days
[2019-04-07 12:14] LABS: Basophils # (Auto) 0.1 K/mm3 (0.0-0.1); Basophils % (Auto) 1.1 % (0.0-1.8); Eosinophils # (Auto) 0.1 K/mm3 (0.0-0.4); Hematocrit 50.7 % (35.5-45.6); Hemoglobin 16.9 gm/dl (11.8-15.2); Lymphocytes % (Auto) 17.6 % (13.4-35.0); Mean Corpuscular HGB Conc 33 % (32-34); Mean Corpuscular Volume 94 fl (84-94); Monocytes # (Auto) 0.5 K/mm3 (0.0-0.8); Platelet Count 157 K/mm3 (140-440); Red Blood Count 5.39 M/mm3 (3.65-5.03); Red Cell Distribution Width 14.1 % (13.2-15.2)
[2019-04-07 12:19] LABS: BUN/Creatinine Ratio 9; Blood Urea Nitrogen 12 mg/dL (9-20); Calcium 9.3 mg/dL (8.4-10.2); Hemolysis Index 12
[2019-04-07 12:33] LABS: Bilirubin,Urine NEG (Negative); Blood,Urine NEG (Negative); Color,Urine Yellow (Yellow); Mucus,Urine 2+ /HPF; Protein,Urine <15 mg/dL mg/dL (Negative); Urobilinogen,Urine < 2.0 mg/dL (<2.0); WBC,Urine < 1.0 /HPF (0.0-6.0)
--- NOTE | 2019-04-07 12:38 | Ultrasound Report ---
Scrotal Ultrasound HISTORY: bacteria, testicular pain.. TECHNIQUE: Grayscale and color Doppler imaging performed. COMPARISON: None FINDINGS: Right testicle measures 5.4 x 3.1 x 3.9 cm with normal blood flow and normal appearance. Le ft testicle measures 5.7 x 2.5 x 4.4 cm with normal appearance and blood flow. No hydrocele or varico berlin seen bilaterally. Each epididymal head is within normal limits. IMPRESSION: Unremarkable exam. Signer Name: Aamir Leonardo MD Signed: 04/07/2019 12:33 PM Workstation Name: [id number]
[2019-04-07] MEDS ORDERED: XYLOCAINE 1% MPF 5 mL INFILTRATI ONE (12:50)
[2019-04-07] MEDS ORDERED: ZITHROMAX PO ONE (12:50)
[2019-04-07] MEDS ORDERED: ROCEPHIN IM ONE (12:50)
[2019-04-07 14:49] VITALS: BP 159/115
== END 2019-04-07 15:14 | disposition home or self-care (01) ==
LOC: ED 10:44
DX: N50.819 Testicular pain, unspecified (principal); I10 Essential (primary) hypertension; A64 Unspecified sexually transmitted disease; F17.200 Nicotine dependence, unspecified, uncomplicated; F12.10 Cannabis abuse, uncomplicated
CPT/HCPCS: 36415; 80048; 81001; 85025; 87591; 93975; 96372; 99284; J0696

== ENCOUNTER 2019-10-09 10:28 | Emergency (ER) | payer OTHER ==
--- NOTE | 2019-10-09 11:13 | XRay Report ---
CHEST 2 VIEWS INDICATION / CLINICAL INFORMATION: cough. COMPARISON: 10/11/2017. FINDINGS: SUPPORT DEVICES: None. HEART / MEDIASTINUM: No significant abnormality. LUNGS / PLEURA: No significant pulmonary or pleural abnormality. No pneumothorax. ADDITIONAL FINDINGS: No significant additional findings. IMPRESSION: 1. No acute findings. Signer Name: Dennis Holt MD Signed: 10/09/2019 11:09 AM Workstation Name: [id number]
--- NOTE | 2019-10-09 12:00 | Emergency Department Report ---
Minor Respiratory - HPI Chief Complaint: Upper Respiratory Infection Stated Complaint: FEVER/CHILLS/CP/COUGH Time Seen by Provider: 10/09/19 11:34 Duration: 4 Days Pain Location: Throat, Nose, Chest Severity: mild Minor Respiratory: Yes Sore Throat, Yes Able to Tolerate Fluids, Yes Cough, Yes Shortness of Breath, No Rhinorrhea, No Ear Pain, No Sick Contacts, No Hemopty sis, No Chest Pain, No Fever Other History: Patient is a 44-year-old -British male and he presents to the ER with a several day history of cough that is dry and shortness of breath. He endorses fever subjectively at home. He also reports having traveled to and from [place] via air. His symptoms developed over the last few days and the symptoms started about 5 days after he arrived in [place]. Patient is nontoxic on exam. His saturation is 98% on room air. He has no fever. No hypotension or tachycardia. Underlying comorbid conditions include hypertension. Given patient's lower respiratory symptomology and recent travel I have submitted Cobin testing to the Department of Health. Case discussed with Dr. Radames Randall. ED Review of Systems ROS: Stated complaint: FEVER/CHILLS/CP/COUGH Other details as noted in HPI Comment: All other systems reviewed and negative ED Past Medical Hx - Past Medical History Previous Medical History?: Yes Hx Hypertension: Yes Additional medical history: Bronchitis - Surgical History Past Surgical History?: No - Social History Smoking Status: Never Smoker Substance Use Type: Alcohol - Medications Home Medications: Home Medications Medication Instructions Recorded Confirmed Last Taken Type Albuterol INH(or & Nicu Only) 2 puff IH QID PRN #1 inhalation 10/11/17 Unknown Rx [ProAir HFA Inhaler] Ibuprofen [Motrin] 800 mg PO Q8HR PRN #20 tablet 10/11/17 Unknown Rx Phenylephrine/Dm/Acetaminop/GG 10 ml PO Q6H PRN #1 liquid 10/11/17 Unknown Rx [Mucinex Vnti-Poi-Tzfksfigmh Lq] levoFLOXacin [Levaquin] 750 mg PO QDAY #5 tablet 10/11/17 Unknown Rx Famotidine [Acid Controller] 20 mg PO BID 30 Days #60 tablet 11/02/18 Unknown Rx Promethazine [Phenergan] 25 mg PO Q6HR PRN #10 tab 11/02/18 Unknown Rx amLODIPine 5 mg PO DAILY 30 Days #30 tab 11/02/18 Unknown Rx hydroCHLOROthiazide [HCTZ] 25 mg PO QDAY #30 tablet 11/02/18 Unknown Rx amLODIPine [Norvasc] 5 mg PO DAILY #30 tab 04/07/19 Unknown Rx hydroCHLOROthiazide [HCTZ] 25 mg PO QDAY #30 tablet 04/07/19 Unknown Rx Minor Respiratory Exam - Exam General: Vital signs noted. No distress. Alert and acting appropriately. HEENT: Yes Moist Mucous Membranes, No Pharyngeal Erythema, No Pharyngeal Exudates, No Rhinorrhea, No Conjuctival Injection, No Frontal Tenderness, No Maxillary Tenderness Ear: Neither TM Bulge, Neither TM Erythema, Neither EAC Pain, Neither EAC Discharge Neck: Yes Supple, No Adenopathy Lungs: Yes Good Air Exchange, No Wheezes, No Ronchi, No Stridor, No Cough, No Labored Respirations, No Retractions, No Use of Accessory Muscles, No Other Abnormal Lung Sounds Heart: Yes Regular, No Murmur Abdomen: Yes Normal Bowel Sounds, No Tenderness, No Peritoneal Signs Skin: No Rash, No Edema Neurologic: Alert and oriented, no deficits. Musculoskeletal: Unremarkable. ED Course Vital Signs 10/09/19 10:30 Temperature 98.6 F Pulse Rate 66 Respiratory 18 Rate Blood Pressure 169/119 O2 Sat by Pulse 98 Oximetry ED Medical Decision Making - Lab Data Result diagrams: 10/09/19 11:57 10/09/19 11:57 - Radiology Data Radiology results: report reviewed, image reviewed [facility] - Medical Decision Making Lab Results 10/09/19 10/09/19 10/09/19 Range/Units 11:57 11:57 Unknown WBC 4.0 L (4.5-11.0) K/mm3 RBC 5.08 H (3.65-5.03) M/mm3 Hgb 15.8 H (11.8-15.2) gm/dl Hct 45.9 H (35.5-45.6) % MCV 90 (84-94) fl MCH 31 (28-32) pg MCHC 35 H (32-34) % RDW 14.7 (13.2-15.2) % Plt Count 162 (140-440) K/mm3 Lymph % (Auto) 28.2 (13.4-35.0) % Price % (Auto) 8.3 H (0.0-7.3) % Eos % (Auto) 1.0 (0.0-4.3) % Baso % (Auto) 0.2 (0.0-1.8) % Lymph # 1.1 L (1.2-5.4) K/mm3 Price # 0.3 (0.0-0.8) K/mm3 Eos # 0.0 (0.0-0.4) K/mm3 Baso # 0.0 (0.0-0.1) K/mm3 Seg Neutrophils % 62.3 (40.0-70.0) % Seg Neutrophils # 2.5 (1.8-7.7) K/mm3 Sodium 142 (137-145) mmol/L Potassium 4.1 (3.6-5.0) mmol/L Chloride 103.0 (98-107) mmol/L Carbon Dioxide 28 (22-30) mmol/L Anion Gap 15 mmol/L BUN 15 (9-20) mg/dL Creatinine 1.2 (0.8-1.5) mg/dL Estimated GFR > 60 ml/min BUN/Creatinine Ratio 13 % Glucose 94 (75-100) mg/dL Calcium 9.3 (8.4-10.2) mg/dL Total Bilirubin 0.90 (0.1-1.2) mg/dL AST 30 (5-40) units/L ALT 14 (7-56) units/L Alkaline Phosphatase 89 (35-129) units/L Total Protein 7.9 (6.3-8.2) g/dL Albumin 4.2 (3.9-5) g/dL Albumin/Globulin Ratio 1.1 % Influenza A (Rapid) Negative (Negative) Influenza B (Rapid) Negative (Negative) POC RSV Rapid Negative (Negative) Vital Signs Vital Signs 10/09/19 10/09/19 10:30 15:10 Temperature 98.6 F Pulse Rate 66 66 Respiratory 18 16 Rate Blood Pressure 169/119 Blood Pressure 150/105 [Left] O2 Sat by Pulse 98 98 Oximetry Patient has no consolidation on chest x-ray. Patient had negative rapid flu a and B. RSV negative. WBC noted to be normal. Differential noted. Patient has no fever, hypoxia, increased work of breathing. He has normal kidney function. His no evidence of cardiac dysfunction. He does have chronic hypertension and has been taking his blood pressure medicines. However, he states every time he comes to the doctors his blood pressure goes up. As of 1537 the Department of Health has not called back for Covidien instructions. Patient is being discharged home with self quarantine until such time that he hears from the Department of Health. Patient has been educated on self-care as well as prevention of infection to others. He has been given a work note for 2 weeks of self-isolation and referral to the primary care for a note to return to work. Patient has been instructed to return to the ER if he develops acute onset shortness of breath or fever with shortness of breath. On discharge oxygen saturation is 99% on room air. Patient is talking in full sentences without difficulty. He has no tachycardia, fever or hypotension. Case has been staffed with Dr. Radames Randall - Differential Diagnosis RO COVIC-URTI Critical care attestation.: If time is entered above; I have spent that time in minutes in the direct care of this critically ill patient, excluding procedure time. ED Disposition Clinical Impression: Viral illness, History of chronic hypertension Disposition: TO HOME OR SELFCARE Is pt being admited?: No Does the pt Need Aspirin: No Condition: Stable Additional Instructions: SELF ISOLATION IN HOME FOR 2 WEEKS AVOID COUGHING/SNEEZING AROUND OTHERS FOLLOW UP WITH PCP IN 48 FOR RECHECK REFERRAL BELOW YOU WILL GET A CALL FROM Dominique KATZ REGARDING COVID TESTING HIS NUMBER IS [phone] [employer] FLU/RSV NEG TODAY; XRAY NORMAL TAKE BP MEDS Referrals: DYANA BECKER MD [Staff Physician] - 3-5 Days Forms: Work/School Release Form(ED) Time of Disposition: 15:17
[2019-10-09 12:06] LABS: Basophils % (Auto) 0.2 % (0.0-1.8); Hematocrit 45.9 % (35.5-45.6); Hemoglobin 15.8 gm/dl (11.8-15.2); Lymphocytes # (Auto) 1.1 K/mm3 (1.2-5.4); Lymphocytes % (Auto) 28.2 % (13.4-35.0); Mean Corpuscular HGB Conc 35 % (32-34); Mean Corpuscular Volume 90 fl (84-94); Monocytes # (Auto) 0.3 K/mm3 (0.0-0.8); Monocytes % (Auto) 8.3 % (0.0-7.3); Platelet Count 162 K/mm3 (140-440); Red Blood Count 5.08 M/mm3 (3.65-5.03); Red Cell Distribution Width 14.7 % (13.2-15.2)
[2019-10-09] MEDS ORDERED: SODIUM CHLORIDE 0.9% 1000 ML 1,000 ML IV ONE (12:31)
[2019-10-09 12:45] LABS: Alanine Aminotransferase 14 units/L (7-56); Albumin 4.2 g/dL (3.9-5); BUN/Creatinine Ratio 13; Blood Urea Nitrogen 15 mg/dL (9-20); Calcium 9.3 mg/dL (8.4-10.2); Hemolysis Index 5
[2019-10-09 15:13] VITALS: BP 150/105
== END 2019-10-09 16:05 | disposition home or self-care (01) ==
LOC: ED 10:28
DX: B34.9 Viral infection, unspecified (principal); I10 Essential (primary) hypertension; Z79.899 Other long term (current) drug therapy
CPT/HCPCS: 36415; 71046; 80053; 85025; 87400; 87491; 99283; J7030

== ENCOUNTER 2021-06-10 10:33 | Emergency (ER) | payer OTHER ==
[2021-06-10 10:37] VITALS: BP 152/93
--- NOTE | 2021-06-10 12:08 | XRay Report ---
CHEST PA AND LATERAL VIEWS INDICATION: chest pain. COMPARISON: 10/09/2019 FINDINGS: Support devices: None. Heart: Within normal limits. Lungs/Pleura: No acute pulmonary or pleural findings. IMPRESSION: 1. No acute findings. Signer Name: Danny Hernandez MD Signed: 06/10/2021 12:03 PM Workstation Name: [id number]
[2021-06-10 12:15] LABS: BUN/Creatinine Ratio 12; Blood Urea Nitrogen 16 mg/dL (9-20); Calcium 9.7 mg/dL (8.4-10.2); Hemolysis Index 22
[2021-06-10 12:27] LABS: Basophils % (Auto) 0.1 % (0.0-1.8); Eosinophils # (Auto) 0.1 K/mm3 (0.0-0.4); Eosinophils % (Auto) 1.1 % (0.0-4.3); Hematocrit 53.3 % (35.5-45.6); Hemoglobin 16.9 gm/dl (11.8-15.2); Lymphocytes % (Auto) 16.2 % (13.4-35.0); Mean Corpuscular HGB Conc 32 % (32-34); Mean Corpuscular Volume 91 fl (84-94); Monocytes # (Auto) 0.5 K/mm3 (0.0-0.8); Monocytes % (Auto) 8.8 % (0.0-7.3); Platelet Count 201 K/mm3 (140-440); Red Blood Count 5.86 M/mm3 (3.65-5.03); Red Cell Distribution Width 15.9 % (13.2-15.2)
[2021-06-10 12:38] LABS: INR 0.94 (0.87-1.13); Partial Thromboplastin Time 28.8 Sec. (24.2-36.6)
--- NOTE | 2021-06-10 12:50 | Cat Scan Report ---
CT BRAIN: 06/10/2021 INDICATION / CLINICAL INFORMATION: DYER, dizziness. COMPARISON: None available. FINDINGS: BRAIN/INTRACRANIAL STRUCTURES: Unenhanced CT images of the brain demonstrate no evidence of acute abn ormality. Ventricles and sulci are normal in size and shape. There is no evidence of large vessel territory ischemic injury, hemorrhage, or mass. There are no abn ormal extra-axial fluid collections. EXTRACRANIAL STRUCTURES: Unremarkable. IMPRESSION: Negative unenhanced CT of the brain. All CT scans at this location are performed using dose reduction to ALARA by means of automated expos ure control. Signer Name: Ellis Garcia MD Signed: 06/10/2021 12:46 PM Workstation Name: [id number]
[2021-06-10] MEDS ORDERED: BUTALB/ACETAMINOPHEN/CAFFEINE TAB PO ONE (12:58)
--- NOTE | 2021-06-10 12:59 | Emergency Department Report ---
ED General Adult HPI - General Chief complaint: High BP Stated complaint: HYPERTENSION COMPLICATIONS Time Seen by Provider: 06/10/21 10:53 Source: patient Mode of arrival: Ambulatory Limitations: No Limitations - History of Present Illness Initial comments: 47-year-old male, history of hypertension, presents to ED with elevated blood pressure. Patient is reporting headache, dizziness, fatigue, intermittent chest pain. Patient states he was experiencing headache and elevated blood pressure 4 days ago. Patient states he had been out of his blood pressure medication at the time. Patient states he went to a clinic 3 days ago and was placed back on amlodipine and hydrochlorothiazide. Patient states after starting these medications, he began to experience some dizziness, fatigue, and intermittent right-sided chest pain. Patient denies any fever, cough, shortness of breath, leg pain or swelling. Patient states his headache is still present. Patient denies any tobacco or drug use. -: days(s) (4) Location: head, chest Consistency: intermittent Improves with: none Worsens with: none Associated Symptoms: chest pain, headaches. denies: cough, fever/chills, nausea/vomiting, shortness of breath, syncope, weakness - Related Data Previous Rx's Medication Instructions Recorded Last Taken Type Albuterol Mdi (or & Nicu Only) 2 puff IH QID PRN #1 inhalation 10/11/17 Unknown Rx [ProAir HFA Inhaler] Ibuprofen [Motrin] 800 mg PO Q8HR PRN #20 tablet 10/11/17 Unknown Rx Phenylephrine/Dm/Acetaminop/GG 10 ml PO Q6H PRN #1 liquid 10/11/17 Unknown Rx [Mucinex Zbfi-Gkz-Vrbdmimxzu Lq] levoFLOXacin [Levaquin] 750 mg PO QDAY #5 tablet 10/11/17 Unknown Rx Famotidine [Acid Controller] 20 mg PO BID 30 Days #60 tablet 11/02/18 Unknown Rx Promethazine [Phenergan] 25 mg PO Q6HR PRN #10 tab 11/02/18 Unknown Rx amLODIPine 5 mg PO DAILY 30 Days #30 tab 11/02/18 Unknown Rx hydroCHLOROthiazide [HCTZ] 25 mg PO QDAY #30 tablet 11/02/18 Unknown Rx amLODIPine [Norvasc] 5 mg PO DAILY #30 tab 04/07/19 Unknown Rx hydroCHLOROthiazide [HCTZ] 25 mg PO QDAY #30 tablet 04/07/19 Unknown Rx Butalb/Acetamin/Caff 50-325-40 1 tab PO Q6HR PRN #10 tab 06/10/21 Unknown Rx [Fioricet] Naproxen [Naprosyn] 500 mg PO BID #20 tablet 06/10/21 Unknown Rx Allergies Allergy/AdvReac Type Severity Reaction Status Date / Time No Known Allergies Allergy Verified 06/10/21 10:37 ED Review of Systems ROS: Stated complaint: HYPERTENSION COMPLICATIONS Other details as noted in HPI Comment: All other systems reviewed and negative Constitutional: denies: fever Respiratory: denies: cough, shortness of breath Cardiovascular: chest pain Gastrointestinal: denies: nausea, vomiting Musculoskeletal: other (Denies leg pain or swelling) Neurological: headache. denies: weakness, numbness ED Past Medical Hx - Past Medical History Hx Hypertension: Yes Additional medical history: Bronchitis - Social History Smoking Status: Never Smoker Substance Use Type: Alcohol - Medications Home Medications: Home Medications Medication Instructions Recorded Confirmed Last Taken Type Albuterol Mdi (or & Nicu Only) 2 puff IH QID PRN #1 inhalation 10/11/17 Unknown Rx [ProAir HFA Inhaler] Ibuprofen [Motrin] 800 mg PO Q8HR PRN #20 tablet 10/11/17 Unknown Rx Phenylephrine/Dm/Acetaminop/GG 10 ml PO Q6H PRN #1 liquid 10/11/17 Unknown Rx [Mucinex Escg-Gdy-Avaoonohvr Lq] levoFLOXacin [Levaquin] 750 mg PO QDAY #5 tablet 10/11/17 Unknown Rx Famotidine [Acid Controller] 20 mg PO BID 30 Days #60 tablet 11/02/18 Unknown Rx Promethazine [Phenergan] 25 mg PO Q6HR PRN #10 tab 11/02/18 Unknown Rx amLODIPine 5 mg PO DAILY 30 Days #30 tab 11/02/18 Unknown Rx hydroCHLOROthiazide [HCTZ] 25 mg PO QDAY #30 tablet 11/02/18 Unknown Rx amLODIPine [Norvasc] 5 mg PO DAILY #30 tab 04/07/19 Unknown Rx hydroCHLOROthiazide [HCTZ] 25 mg PO QDAY #30 tablet 04/07/19 Unknown Rx Butalb/Acetamin/Caff 50-325-40 1 tab PO Q6HR PRN #10 tab 06/10/21 Unknown Rx [Fioricet] Naproxen [Naprosyn] 500 mg PO BID #20 tablet 06/10/21 Unknown Rx ED Physical Exam - General Limitations: No Limitations General appearance: alert, in no apparent distress - Head Head exam: Present: atraumatic, normocephalic - Eye Eye exam: Present: normal appearance, EOMI - ENT ENT exam: Present: mucous membranes moist - Neck Neck exam: Present: normal inspection - Respiratory Respiratory exam: Present: normal lung sounds bilaterally. Absent: respiratory distress - Cardiovascular Cardiovascular Exam: Present: regular rate, normal rhythm - GI/Abdominal GI/Abdominal exam: Present: soft. Absent: distended, tenderness - Extremities Exam Extremities exam: Present: normal inspection. Absent: pedal edema, calf tenderness - Neurological Exam Neurological exam: Present: alert, oriented X3, CN II-XII intact, normal gait. Absent: motor sensory deficit - Psychiatric Psychiatric exam: Present: normal affect, normal mood - Skin Skin exam: Present: warm, dry, intact, normal color ED Course Vital Signs 06/10/21 06/10/21 10:34 13:25 Temperature 98 F Pulse Rate 90 Respiratory 18 18 Rate Blood Pressure 152/93 [Left] O2 Sat by Pulse 100 Oximetry ED Medical Decision Making - Lab Data Result diagrams: 06/10/21 11:35 06/10/21 11:35 - EKG Data -: EKG Interpreted by Mo EKG shows normal: sinus rhythm, intervals, QRS complexes Rate: normal - EKG Data Interpretation: nonspecific ST-T wave arsalan, LVH - Radiology Data Radiology results: report reviewed, image reviewed - Medical Decision Making 47-year-old male, history of hypertension, presents to ED with elevated blood pressure. Patient is reporting headache, dizziness, fatigue, intermittent chest pain. Patient states he was experiencing headache and elevated blood pressure 4 days ago. Patient states he had been out of his blood pressure medication at the time. Patient states he went to a clinic 3 days ago and was placed back on amlodipine and hydrochlorothiazide. Patient states after starting these medications, he began to experience some dizziness, fatigue, and intermittent right-sided chest pain. Patient denies any fever, cough, shortness of breath, leg pain or swelling. Patient states his headache is still present. Patient denies any tobacco or drug use. With atypical right-sided chest pain. EKG shows no ST changes. Troponin is negative. Low suspicion for PE. Chest x-ray and CT head unremarkable. Patient will be discharged at this time. Outpatient follow-up advised, return precautions given. - Differential Diagnosis ACS, atypical chest pain, intracranial abnormality, hypertensive headache Critical care attestation.: If time is entered above; I have spent that time in minutes in the direct care of this critically ill patient, excluding procedure time. ED Disposition Clinical Impression: Hypertension, Acute headache, Acute chest pain Disposition: HOME / SELF CARE / HOMELESS Is pt being admited?: No Condition: Stable Instructions: Tension Headache, Adult, Yrne-ov-Zyns, Nonspecific Chest Pain, Adult, Managing Your Hypertension, Chest Pain (ED), Hypertension (ED) Prescriptions: Butalb/Acetamin/Caff 50-325-40 [Fioricet] 1 tab PO Q6HR PRN #10 tab PRN Reason: Headache Naproxen [Naprosyn] 500 mg PO BID #20 tablet Referrals: PRIMARY CAREMD [Primary Care Provider] - 3-5 Days [facility] [Provider Group] - 3-5 Days Forms: Work/School Release Form(ED) Time of Disposition: 13:00
--- NOTE | 2021-06-11 10:41 | Electrocardiograph Report ---
[facility] Test Date: 2021-06-10 Test Time: 10:45:09 Pat Name: NIGEL DELGADO Department: Room: Gender: M C Architect: ALEX : 1975 Requested By: MYRNA VIDAL Order Number: [id number] Reading MD: Dion Burton Measurements Intervals Alice Rate: 82 P: 74 NM: 161 QRS: 0 QRSD: 97 T: 22 QT: 376 QTc: 439 Interpretive Statements Sinus rhythm Biatrial enlargement Left ventricular hypertrophy ST elev, probable normal early repol pattern No previous ECG available for comparison Electronically Signed On 06-11-2021 10:40:49 EST by Dion Burton
== END 2021-06-10 13:26 | disposition home or self-care (01) ==
LOC: ED 10:33
DX: I10 Essential (primary) hypertension (principal); R51.9 Headache, unspecified; R07.89 Other chest pain; Z72.89 Other problems related to lifestyle; Z79.899 Other long term (current) drug therapy
CPT/HCPCS: 36415; 70450; 71046; 80048; 84484; 85025; 85610; 85730; 93005; 99284